=== PATIENT | male | born 1985 | race African-American/Black ===

== ENCOUNTER 2024-03-19 10:20 | Emergency (ER) | payer OTHER ==
[2024-03-19 10:46] LABS: BASOPHILS % (AUTO) 0.5 %; EOSINOPHILS % (AUTO) 0.3 %; HGB - HEMOGLOBIN 14.1 g/dL (14.0-18.0); LYMPHOCYTES % (AUTO) 54.6 %; MEAN CORPUSCULAR HEMOGLOBIN 28.2 pg (27.0-31.0); MEAN CORPUSCULAR HGB CONC 32.8 g/dL (32.0-36.0); MEAN PLATELET VOLUME 9.7 fL (7.4-11.4); MONOCYTES # (AUTO) 0.2 10^3/uL (0.0-1.0); MONOCYTES % (AUTO) 5.4 %; NEUTROPHILS # (AUTO) 1.4 10^3/uL (1.5-6.6); NEUTROPHILS % (AUTO) 38.9 %; PLT - PLATELET COUNT 187 10^3/uL (130-450); RED CELL DISTRIBUTION WIDTH 13.3 % (12.0-15.0); WHITE BLOOD COUNT 3.7 x10^3/uL (4.8-10.8)
[2024-03-19 11:02] LABS: ALBUMIN 4.2 g/dL (3.2-5.5); ALBUMIN/GLOBULIN RATIO 1.5 (1.0-2.2); BILIRUBIN,TOTAL 0.7 mg/dL (0.2-1.0); CALCIUM 9.8 mg/dL (8.5-10.3); CREATININE 1.4 mg/dL (0.6-1.3)
[2024-03-19 12:16] LABS: BILIRUBIN,URINE NEGATIVE (NEGATIVE); GLUCOSE, URINE (UA) NEGATIVE (NEGATIVE); KETONES,URINE (UA) NEGATIVE (NEGATIVE); LEUKOCYTE ESTERASE, URINE NEGATIVE (NEGATIVE); NITRITE,URINE NEGATIVE (NEGATIVE); OCCULT BLOOD,URINE NEGATIVE (NEGATIVE); PROTEIN,URINE NEGATIVE (NEGATIVE); UROBILINOGEN,URINE 0.2 (NORMAL) E.U./dL (NORMAL)
[2024-03-19 12:20] LABS: CLARITY,URINE CLEAR (CLEAR)
--- NOTE | 2024-03-19 12:59 | ED Physician Documentation ---
PD HPI ABD PAIN - Stated complaint Stated Complaint: GI PX - Chief complaint Chief Complaint: Abd Pain - History obtained from History obtained from: Patient - Additional information Additional information: Otherwise healthy 38-year-old gentleman presents with potential hemorrhoidal pain for the last 24 hours. Has had hemorrhoids before. No changes in bowel movements. PD PAST MEDICAL HISTORY - Past Medical History Past Medical History: Yes - Past Surgical History Past Surgical History: Yes - Present Medications Home Medications: Ambulatory Orders Medication Instructions Recorded Confirmed Hydrocortisone/Pramoxine 1 each RC Q6H #60 supp.rect 03/19/24 [Hydrocort-Pramoxine 25-18 mg] polyethylene glycoL 3350(BULK) 17 gm PO DAILY PRN #1 each 03/19/24 [Miralax] - Allergies Allergies/Adverse Reactions: Allergies Allergy/AdvReac Type Severity Reaction Status Date / Time No Known Drug Allergies Allergy Verified 03/19/24 10:33 - Social History Does the pt smoke?: No Smoking Status: Never smoker Does the pt drink ETOH?: Yes Does the pt have substance abuse?: No - Immunizations Immunizations are current?: Yes PD ED PE NORMAL - Vitals Vital signs reviewed: Yes - General General: Alert and oriented X 3, No acute distress - Abdomen Abdomen: Non tender - Rectal Rectal: Other (On the right side he has a friable mass that does not actually look like a hemorrhoid. It is reducible into the rectum. It actually looks more like a small rectal prolapse with overlying abrasion.) - Neuro Neuro: Alert and oriented X 3, Normal speech Results - Vitals Vitals: Vital Signs - 24 hr 03/19/24 10:30 Temperature 36.6 C Heart Rate 99 Respiratory 16 Rate Blood Pressure 119/74 O2 Saturation 99 - Labs Labs: Laboratory Tests 03/19/24 03/19/24 03/19/24 10:42 10:42 12:10 WBC 3.7 L RBC 5.00 Hgb 14.1 Hct 43.0 MCV 86.0 MCH 28.2 MCHC 32.8 RDW 13.3 Plt Count 187 MPV 9.7 Neut # (Auto) 1.4 L Lymph # (Auto) 2.0 [place] # (Auto) 0.2 Eos # (Auto) 0.0 Baso # (Auto) 0.0 Absolute Nucleated RBC 0.00 Nucleated RBC % 0.0 Sodium 139 Potassium 4.0 Chloride 104 Carbon Dioxide 31 Anion Gap 4.0 L BUN 16 Creatinine 1.4 H Estimated GFR (MDRD) 57 L Glucose 95 Calcium 9.8 Total Bilirubin 0.7 AST 30 ALT 19 Alkaline Phosphatase 33 L Total Protein 7.0 Albumin 4.2 Globulin 2.8 Albumin/Globulin Ratio 1.5 Lipase 17 Urine Color YELLOW Urine Clarity CLEAR Urine pH 7.0 Ur Specific [place] 1.015 Urine Protein NEGATIVE Urine Glucose (UA) NEGATIVE Urine Ketones NEGATIVE Urine Occult Blood NEGATIVE Urine Nitrite NEGATIVE Urine Bilirubin NEGATIVE Urine Urobilinogen 0.2 (NORMAL) Ur Leukocyte Esterase NEGATIVE Ur Microscopic Review NOT INDICATED Urine Culture Comments NOT INDICATED PD Medical Decision Making - ED course Complexity details: reviewed results (CBC showing mild lymphopenia, CMP generally unremarkable save for mild renal dysfunction, urinalysis normal/negative.) ED course: 38-year-old gentleman with rectal pain and presumed hemorrhoids but to me it actually looks more like a rectal prolapse and as such of course incision and drainage was not offered. Will prescribe a laxative to keep stool soft, a anesthetic suppository and recommend referral surgical referral. Departure - Departure Disposition: 01 Home, Self Care Clinical Impression: Rectal prolapse Condition: Good Record reviewed to determine appropriate education?: Yes Instructions: ED Prolapse Rectal Follow-Up: Surgical Care [Provider Group] Prescriptions: Hydrocortisone/Pramoxine [Hydrocort-Pramoxine 25-18 mg] 1 each RC Q6H #60 supp.rect polyethylene glycoL 3350(BULK) [Miralax] 17 gm PO DAILY PRN #1 each PRN Reason: Constipation Comments: To me, the mass actually looks more like a small rectal prolapse than it does a hemorrhoid, as such she would not be appropriate to urgently incise and drain at. You should see a surgeon but in the meantime I am prescribing some numbing suppositories and a mild laxative as we want to keep your stools very soft. Forms: PCP List
[2024-03-19 13:11] VITALS: BP 116/81; O2SAT 100
== END 2024-03-19 13:07 | disposition home or self-care (01) ==
LOC: ED 10:20
DX: K62.3 Rectal prolapse (principal)
CPT/HCPCS: 36415; 80053; 81001; 81003; 83690; 85025; 87086; 99283